=== PATIENT | male | born 1985 | race Caucasian/White ===

== ENCOUNTER 2018-02-20 20:07 | Emergency (ER) | payer MEDICAID ==
[~2018-02-20] VITALS: Ht 182.9 cm; Wt 82.0 kg
[2018-02-20] MEDS ORDERED: TETANUS AND DIPHTHERIA TOX/PF 0.5ML SYR (ADULT) IM ONE (20:30)
[2018-02-20] MEDS ORDERED: BACITRACIN ZINC 15GM TUBE TOP ONE (21:30)
[2018-02-20] MEDS ORDERED: LIDOCAINE HCL 1% 20ML VIAL (Pyxis) INJ INFIL ONE (21:30)
[2018-02-20] MEDS ORDERED: TETANUS, DIPHTHERIA, PERTUSSIS VAC/PF 0.5ML (>7YR OLD) IM ONE (22:15)
[2018-02-20 22:31] VITALS: BP 107/71
== END 2018-02-20 22:33 | disposition home or self-care (01) ==
LOC: ER 20:59
DX: S61.411A Laceration without foreign body of right hand, initial encounter (principal); W22.8XXA Striking against or struck by other objects, initial encounter; Y93.89 Activity, other specified; Y92.89 Other specified places as the place of occurrence of the external cause; Z23 Encounter for immunization; F17.210 Nicotine dependence, cigarettes, uncomplicated
CPT/HCPCS: 12002; 73130; 90471; 90715; 99284; J3490; Z7610; 90714

== ENCOUNTER 2019-09-21 05:36 | Emergency (ER) | payer MEDICAID ==
[~2019-09-21] VITALS: Ht 182.9 cm; Wt 88.0 kg
[2019-09-21] MEDS ORDERED: BACITRACIN ZINC OINT UDPKT TOP ONE (06:30)
[2019-09-21] MEDS ORDERED: LIDOCAINE 1%/EPI 1:100,000 10 ML VIAL IJ ONE (06:30)
[2019-09-21] MEDS ORDERED: CLINDAMYCIN 600 MG in DEXTROSE 5% WATER 50 ML IV ONE (06:30)
[2019-09-21] MEDS ORDERED: LIDOCAINE HCL/EPINEPHRINE 1%-EPI 1:100,000 20 ML VIAL INFIL ONE (06:35)
[2019-09-21] MEDS ORDERED: CLINDAMYCIN 600MG PREMIX 50 ML IV SCH (06:45)
[2019-09-21 07:37] VITALS: BP 105/49
== END 2019-09-21 07:55 | disposition home or self-care (01) ==
LOC: ER 05:36
DX: F19.90 Other psychoactive substance use, unspecified, uncomplicated (principal); L02.413 Cutaneous abscess of right upper limb; L03.113 Cellulitis of right upper limb; F17.200 Nicotine dependence, unspecified, uncomplicated
CPT/HCPCS: 10060; 99283; J3490; Z7610; J7060

== ENCOUNTER 2019-09-23 07:08 | Emergency (ER) | payer MEDICAID ==
[~2019-09-23] VITALS: Ht 177.8 cm; Wt 77.0 kg
[2019-09-23 08:35] LABS: BASOPHILS % 0.2 % (0.0-2.0); EOSINOPHILS % 7.2 % (0.0-5.0); HEMATOCRIT. 36.6 % (42.0-52.0); HEMOGLOBIN. 12.2 g/dL (14.0-18.0); LYMPHOCYTES % 41.6 % (20.0-50.0); MEAN CORPUSCULAR HEMOGLOBIN 28.9 pg (28.0-32.0); MEAN CORPUSCULAR VOLUME 86.3 fL (80.0-94.0); MEAN PLATELET VOLUME 8.2 fl (7.4-10.4); MONOCYTES % 11.8 % (2.0-8.0); NEUTROPHILS % 39.2 % (40.0-76.0); PLATELET 272 x1000/uL (130-400); RED BLOOD CELL COUNT 4.24 mill/uL (4.7-6.1); RED CELL DISTRIBUTION WIDTH 14.3 % (11.6-14.6)
[2019-09-23 08:41] LABS: CHLORIDE 105 mEq/L (98-107)
[2019-09-23 08:46] LABS: ETHANOL BLOOD < 10 mg/dL
[2019-09-23 09:07] VITALS: BP 128/74
== END 2019-09-23 09:14 | disposition home or self-care (01) ==
LOC: ER 07:43
DX: R56.9 Unspecified convulsions (principal); L03.119 Cellulitis of unspecified part of limb
CPT/HCPCS: 36415; 80307; 80320; 80329; 99283; G0480

== ENCOUNTER 2019-11-17 10:53 | Emergency (ER) | payer MEDICAID, OTHER | END 2019-11-17 12:02 | disposition left against medical advice (07) | LOC: ER 10:53 | DX: M79.604 Pain in right leg (principal); Z53.21 Procedure and treatment not carried out due to patient leaving prior to being seen by health care provider ==

== ENCOUNTER 2019-12-07 15:25 | Emergency (ER) | payer MEDICAID ==
[~2019-12-07] VITALS: Ht 177.8 cm; Wt 70.0 kg
[2019-12-07] MEDS ORDERED: ACETAMINOPHEN WITH CODEINE 300/30MG TABLET PO ONE (16:30)
[2019-12-07] MEDS ORDERED: TETANUS, DIPHTHERIA, PERTUSSIS VAC/PF 0.5ML (>7YR OLD) IM ONE (16:30)
[2019-12-07 17:45] VITALS: BP 122/88
[2019-12-07] MEDS ORDERED: BACITRACIN ZINC OINT UDPKT TOP ONE (18:30)
[2019-12-07] MEDS ORDERED: IBUPROFEN 600MG TABLET PO ONE (18:30)
== END 2019-12-07 18:27 | disposition home or self-care (01) ==
LOC: ER 15:25
DX: S09.8XXA Other specified injuries of head, initial encounter (principal); S00.83XA Contusion of other part of head, initial encounter; T14.8XXA Other injury of unspecified body region, initial encounter; R56.9 Unspecified convulsions; Y08.89XA Assault by other specified means, initial encounter; Y93.9 Activity, unspecified; Y92.9 Unspecified place or not applicable
CPT/HCPCS: 70486; 90471; 90715; 99285